=== PATIENT | female | born 1950 | race Caucasian/White ===

== ENCOUNTER 2016-12-31 11:47 | Day surgery (SDC) | payer MEDICARE, BC ==
[2016-12-31] MEDS ORDERED: Lidocain 1% EPI 1:100,000 * 30 ML MDV ONE (14:27)
[2016-12-31] MEDS ORDERED: Sodium Bicarbonate 8.4% IV* 50 ML VIAL ONE (14:27)
[2016-12-31] MEDS ORDERED: Bupivacaine 0.25% SDV* 30 ML ONE (14:57)
[2016-12-31 15:50] VITALS: BP 139/79
--- NOTE | 2017-01-01 10:30 | OP ---
OPERATIVE REPORT: DATE OF OPERATION: 12/31/16 DATE OF : 48 SURGEON: Ayan Garcia MD COPY ROOM TECHNICIAN: JAYLA Mayes ANESTHESIOLOGIST: None. ANESTHESIA: Local only with 1% lidocaine with epinephrine and bicarbonate. PRE-OP DIAGNOSES: 1. Left middle and ring trigger fingers. 2. Left de Quervain's tenosynovitis with nodule at the first dorsal compartment tendon sheath. POST-OP DIAGNOSES: 1. Left middle and ring trigger fingers. 2. Left de Quervain's tenosynovitis with nodule at the first dorsal compartment tendon sheath. OPERATIVE PROCEDURE: 1. Left middle trigger finger release. 2. Left ring trigger finger release. 3. Left wrist de Quervain's release with excision of tendon sheath nodule. INDICATIONS: Maylin is a patient in whom I had injected right middle and ring trigger fingers. She had a bit of relief, but still maye triggering. She has left middle and ring trigger fingers that are essentially the same as the right side and she has a nodule at the left first dorsal compartment tendon sheath with associated de Quervain's tenosynovitis. I had talked to her and I talked to heart transplant surgeon, who had given me recommendations. I talked to Maylin about doing further injections on the left or proceeding with surgical release. Since she had incomplete relief with the injections on the right, she wanted to go ahead and proceed with surgery on the left side and we will address the right side at a later date as she is interested in addressing the de Quervain's disease. We talked about risks and benefits. She is immunosuppressed. Her transplant team said no medication changes were warranted. She has had prior lumbar spine surgery and knee surgery and done well with that. Certainly, she is at higher risk for infection. She understands that. She wished to proceed. ESTIMATED BLOOD LOSS: 5 mL. COMPLICATIONS: None. FINDINGS: There was a cyst off the middle finger A1 kimberly. The sheath over the first dorsal compartment tendons was quite thickened and hypertrophic. There was also a small cyst off that as well. The tendons of the first dorsal compartment were frayed. DESCRIPTION OF PROCEDURE: Maylin was seen in the preoperative holding area. The correct site, side, and procedure were identified. We had a time-out, then I anesthetized the operative area with 1% lidocaine with epinephrine and bicarbonate. Short time later, we came back to the operating room and the arm was prepped and draped in the usual fashion and a formal time-out was performed. I began by making a 1-cm longitudinal incision over the A1 kimberly of the left middle finger. Dissection was carried down bluntly. Ragnell retractors were used to expose the A1 kimberly. This was sharply incised with a 15-blade. The release was extended proximally and distally with the tenotomy scissors. There was a retinacular cyst that was coming off the A1 kimberly, this was decompressed with the release of the A1 kimberly. Once I had adequate release proximally and distally, we went ahead and turned our attention to the left ring finger. I made a longitudinal incision over the A1 kimberly of the left ring finger. Dissection was carried down bluntly with the tenotomy scissors. Ragnell retractors were used to expose the A1 kimberly. This was incised longitudinally with a 15- blade. The release was extended proximally and distally with the tenotomy scissors. Once I was satisfied, we went ahead and irrigated out both of the wounds and attention was turned to the wrist. I made a 2-cm transverse incision right over the first dorsal compartment tendon sheath and overlying the nodule there. Dissection was carried down bluntly so as to preserve the traversing radial sensory nerves. Gentle retraction was applied with the Ragnell retractors. Full-thickness flaps were raised off the tendon sheath. Under direct visualization, I went ahead and opened the first dorsal compartment tendon sheath along the dorsal aspect. There was indeed septation in an accessory compartment. The septation was released sharply with a 15-blade. The release was carried out and was continued proximally and distally under direct visualization with the tenotomy scissors. There was quite a bit of fraying of many of the tendons. The nodule and the tendon sheath had a bit of a ganglion cyst coming from it. This was excised. This was sent off to the pathologist as a hypertrophic and thickened first dorsal compartment tendon sheath specimen. Once I was satisfied with the release, I went ahead and irrigated out all the wounds again. The wounds were then closed with 4-0 nylon horizontal mattress sutures. The operative wounds were infiltrated with 0.25% plain Marcaine. The wounds were then dressed with Xeroform, 4x4s, sterile Webril, and an Nasim bandage. She was then taken to the recovery room in stable condition. POSTOPERATIVE PLAN: Maylin takes Bactrim every day. She is going to take this twice daily instead of once daily for the next 3 days for prophylaxis given her immunosuppression due to her prior heart transplant. She will follow up with me in a week and a half. [id number]/CPS #: [id number] MTDNicole
== END 2016-12-31 15:53 | disposition home or self-care (01) ==
LOC: OREAST 11:47
PROVIDERS: ATTEND Orthopaedic Surgery Hand Surgery
DX: M65.4 Radial styloid tenosynovitis [de Quervain] (principal); R22.32 Localized swelling, mass and lump, left upper limb; M65.332 Trigger finger, left middle finger; M65.342 Trigger finger, left ring finger; E11.9 Type 2 diabetes mellitus without complications; Z79.4 Long term (current) use of insulin
CPT/HCPCS: 88304

== ENCOUNTER 2019-06-16 12:05 | Emergency (ER) | payer MEDICARE, BC ==
[2019-06-16 12:19] VITALS: BP 119/77
--- NOTE | 2019-06-16 12:40 | UC ---
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 Negative: Cough ( Productive), Cough (Nonproductive), Cough (Bloody Sputum), Wheezing, Chest Pain Unrelated to Cough, Fever, Chills, Diaphoresis, Nasal Congestion, Dizzy, Calf Pain/Swelling - Risk Factors Cardiac: CAD, Diabetes - Allergy/Home Medications Allergies/Adverse Reactions: Allergies Allergy/AdvReac Type Severity Reaction Status Date / Time CAMERON Inhibitors Allergy Coughing Verified 06/16/19 12:14 ABANDONED PACER WIRE - NO Allergy UNSAFE Uncoded 06/16/19 12:14 MRIs Home Medications: Home Medications Aspirin EC TAB* [Ecotrin EC Low Dose 81 MG*] 81 mg PO DAILY 06/16/19 [History Confirmed 06/16/19] Cetirizine* [ZyrTEC 10 MG TAB*] 10 mg PO DAILY 06/16/19 [History Confirmed 06/16] Iron 65 mg BID 06/16/19 [History Confirmed 06/16/19] Levothyroxine TAB* [Synthroid TAB*] 150 mcg PO DAILY 06/16/19 [History Confirmed 06/16/19] Lisinopril TAB* [Prinivil TAB*] 2.5 mg PO DAILY 06/16/19 [History Confirmed ] Montelukast Sodium TAB* [Singulair TAB*] 10 mg PO DAILY 06/16/19 [History Confirmed 06/16/19] Pantoprazole TAB * [Protonix TAB*] 40 mg PO DAILY 06/16/19 [History Confirmed ] Pravastatin Sodium 20 mg PO DAILY 06/16/19 [History Confirmed 06/16/19] Pregabalin CAP(*) [Lyrica CAP(*)] 1 tab DAILY 06/16/19 [History Confirmed ] Ranitidine TAB (NF) [Zantac TAB (NF)] 300 mg PO DAILY 06/16/19 [History Confirmed 06/16/19] Sirolimus 3 tab SEE INSTRUCTIONS 06/16/19 [History Confirmed 06/16/19] glipiZIDE TAB* [Glucotrol TAB*] 1 tab DAILY 06/16/19 [History Confirmed 06/16/19 ] hydrALAZINE TAB* [Apresoline TAB*] 3 tab TID 06/16/19 [History Confirmed ] oxyCODONE SR TAB(*) [Oxycontin 20 mg (*)] 20 mg PO QID PRN 06/16/19 [History Confirmed 06/16/19] PMH/Surg Hx/FS Hx/Imm Hx - Additional Past Medical History Additional PMH: sleep apnea Endocrine History: Diabetes Cardiovascular History: Cardiac Disease, Hypertension - Surgical History Surgical History: Yes Surgery Procedure, Year, and Place: heart transplant 2011, s/p LD L2-L5 on , Thyroidectomy, appy, bilateral carpal tunnel, 2 c-sections. LEFT knee - Family History Known Family History: Positive: Diabetes - Social History Alcohol Use: None Substance Use Type: Prescribed Smoking Status (MU): Never Smoked Tobacco Review of Systems All Other Systems Reviewed And Are Negative: Yes Respiratory: Positive: Shortness Of Breath Cardiovascular: Positive: Palpitations Is Patient Immunocompromised?: No Physical Exam Triage Information Reviewed: Yes Appearance: Well-Appearing, No Pain Distress, Well-Nourished Vital Signs: Initial Vital Signs Temp 98.6 F 06/16/19 12:08 Pulse 100 06/16/19 12:08 Resp 16 06/16/19 12:08 BP 119/77 06/16/19 12:08 Pulse Ox 96 06/16/19 12:08 Vital Signs Reviewed: Yes Eye Exam: Normal Eyes: Positive: Conjunctiva Clear ENT: Positive: Normal ENT inspection, Hearing grossly normal Neck exam: Normal Respiratory: Positive: Chest non-tender, No respiratory distress, Rhonchi Cardiovascular: Positive: Tachycardia, Other: - bilateral lower leg ededma Abdominal Exam: Normal Shortness of Breath Dx - Differential Dx/Diagnosis Provider Diagnosis: Dyspnea, Edema of leg Discharge ED - Sign-Out/Discharge Documenting (check all that apply): Patient Departure All imaging exams completed and their final reports reviewed: No Studies - Discharge Plan Condition: Stable Disposition: HOME Patient Education Materials: Leg Edema (ED), Dyspnea (ED) Referrals: Kristina Graves MD [Primary Care Provider] - Additional Instructions: please go to [facility] ED for evaluation of SOB / leg edema - Billing Disposition and Condition Condition: STABLE Disposition: Home
== END 2019-06-16 12:42 | disposition home or self-care (01) ==
LOC: UCCORT 12:05
DX: R06.00 Dyspnea, unspecified (principal); R60.1 Generalized edema; R00.0 Tachycardia, unspecified; R06.02 Shortness of breath; E11.9 Type 2 diabetes mellitus without complications; I25.10 Atherosclerotic heart disease of native coronary artery without angina pectoris; I10 Essential (primary) hypertension; Z79.84 Long term (current) use of oral hypoglycemic drugs; Z79.899 Other long term (current) drug therapy; Z79.82 Long term (current) use of aspirin; Z94.1 Heart transplant status
CPT/HCPCS: 93005; 99212; G0463